=== PATIENT | male | born 1985 | race Hispanic/Latino ===

== ENCOUNTER 2020-01-26 14:37 | Emergency (ER) | payer SELFPAY ==
[2020-01-26 14:58] VITALS: BP 139/83
[2020-01-26] MEDS ORDERED: IBUPROFEN 800 MG TAB PO ONE (16:46)
--- NOTE | 2020-01-26 17:25 | Emergency Department Report ---
ED ENT HPI - General Chief complaint: Dental/Oral Stated complaint: MOUTH PAIN Time Seen by Provider: 01/26/20 16:33 Source: patient Mode of arrival: Ambulatory Limitations: No Limitations - History of Present Illness Initial comments: This is a 34-year-old male nontoxic, well nourished in appearance, no acute signs of distress presents to the ED with c/o of right upper toothache 3 weeks. Patient denies following up with a dentist. Patient describes toothache as aching level of 8 out of 10. Patient denies any facial swelling. Patient denies any numbness, tingling, fever, chills, headache, stiff neck, abdominal pain, chest pain, shortness of breath. Patient stated allergies to PCN. MD complaint: tooth pain -: days(s) Location: tooth # 1 - pain here Severity: mild Severity scale (0 -10): 8 Quality: aching Consistency: constant Improves with: none Worsens with: none Context- Dental: history of dental caries, poor dental care Associated Symptoms: gum swelling, toothache. denies: fever, cough, pain with swallowing, sore throat, tinnitus, hearing loss, discharge from ear, rhinorrhea - Related Data Previous Rx's Medication Instructions Recorded Last Taken Type Chlorhexidine Mouthwash [Peridex] 15 ml MM BID #1 bottle 01/26/20 Unknown Rx Clindamycin [Clindamycin CAP] 300 mg PO Q8H #21 cap 01/26/20 Unknown Rx Naproxen 500 mg PO Q12H PRN #12 tablet 01/26/20 Unknown Rx Allergies Allergy/AdvReac Type Severity Reaction Status Date / Time Penicillins Allergy Swelling Verified 01/26/20 14:55 ED Dental HPI - General Chief complaint: Dental/Oral Stated complaint: MOUTH PAIN Time Seen by Provider: 01/26/20 16:33 Source: patient Mode of arrival: Ambulatory Limitations: No Limitations - Related Data Previous Rx's Medication Instructions Recorded Last Taken Type Chlorhexidine Mouthwash [Peridex] 15 ml MM BID #1 bottle 01/26/20 Unknown Rx Clindamycin [Clindamycin CAP] 300 mg PO Q8H #21 cap 01/26/20 Unknown Rx Naproxen 500 mg PO Q12H PRN #12 tablet 01/26/20 Unknown Rx Allergies Allergy/AdvReac Type Severity Reaction Status Date / Time Penicillins Allergy Swelling Verified 01/26/20 14:55 ED Review of Systems ROS: Stated complaint: MOUTH PAIN Other details as noted in HPI Comment: All other systems reviewed and negative Constitutional: denies: chills, fever Eyes: denies: eye pain, eye discharge, vision change ENT: dental pain. denies: ear pain, throat pain Respiratory: denies: cough, shortness of breath, wheezing Cardiovascular: denies: chest pain, palpitations Endocrine: no symptoms reported Gastrointestinal: denies: abdominal pain, nausea, diarrhea Genitourinary: denies: urgency, dysuria Musculoskeletal: denies: back pain, joint swelling, arthralgia Skin: denies: rash, lesions Neurological: denies: headache, weakness, paresthesias Psychiatric: denies: anxiety, depression Hematological/Lymphatic: denies: easy bleeding, easy bruising ED Past Medical Hx - Past Medical History Previous Medical History?: No - Surgical History Past Surgical History?: No - Social History Smoking Status: Current Every Day Smoker Substance Use Type: Marijuana - Medications Home Medications: Home Medications Medication Instructions Recorded Confirmed Last Taken Type Chlorhexidine Mouthwash [Peridex] 15 ml MM BID #1 bottle 01/26/20 Unknown Rx Clindamycin [Clindamycin CAP] 300 mg PO Q8H #21 cap 01/26/20 Unknown Rx Naproxen 500 mg PO Q12H PRN #12 tablet 01/26/20 Unknown Rx ED Physical Exam - General Limitations: No Limitations General appearance: alert, in no apparent distress - Head Head exam: Present: atraumatic, normocephalic - Eye Eye exam: Present: normal appearance - Expanded ENT Exam Expanded Ear exam: Present: normal external inspection Mouth exam: Present: normal external inspection, tongue normal. Absent: drooling, trismus, muffled voice Teeth exam: Present: dental caries, fractured tooth #, dental tenderness #, gingival enlargement, other (no facial swelling. no abscess) Throat exam: Positive: normal inspection, other (uvula midline). Negative: tonsillar erythema, tonsillomegaly, tonsillar exudate, R peritonsillar mass, L peritonsillar mass - Neck Neck exam: Present: normal inspection - Respiratory Respiratory exam: Absent: respiratory distress - Cardiovascular Cardiovascular Exam: Present: normal rhythm - Extremities Exam Extremities exam: Present: full ROM - Back Exam Back exam: Present: full ROM - Neurological Exam Neurological exam: Present: alert, oriented X3, normal gait - Psychiatric Psychiatric exam: Present: normal affect, normal mood - Skin Skin exam: Present: warm, dry, intact, normal color. Absent: rash ED Course Vital Signs 01/26/20 01/26/20 14:56 17:51 Temperature 98.2 F Pulse Rate 115 H 86 Respiratory 16 Rate Blood Pressure 139/83 [Right] O2 Sat by Pulse 98 Oximetry - Reevaluation(s) Reevaluation #1: 01/26/20 17:26 Patient is speaking in full sentences with no signs of distress noted. ED Medical Decision Making - Medical Decision Making This is a 34-year-old male that presents with gingivitis and dental caries. Patient is stable and was examined by me. Patient is discharged with clindamycin. Patient was instructed to follow-up with a dentist in 3 to 5 days or if symptoms worsen and continue to return to emergency room as was possible. At time of discharge, the patient does not seem toxic or ill in appearance. No acute signs of distress noted. Patient agrees to discharge treatment plan of care. No further questions noted by the patient. Critical care attestation.: If time is entered above; I have spent that time in minutes in the direct care of this critically ill patient, excluding procedure time. ED Disposition Clinical Impression: Dental caries, Gingivitis Disposition: - TO HOME OR SELFCARE Is pt being admited?: No Does the pt Need Aspirin: No Condition: Stable Instructions: Dental Caries (ED), Gingivitis (ED) Additional Instructions: Follow-up with a dentist doctor in 3-5 days or if symptoms worsen and continue return to emergency room as soon as possible. Prescriptions: Clindamycin [Clindamycin CAP] 300 mg PO Q8H #21 cap Naproxen 500 mg PO Q12H PRN #12 tablet PRN Reason: Pain , Severe (7-10) Chlorhexidine Mouthwash [Peridex] 15 ml MM BID #1 bottle Referrals: PRIMARY CAREMD [Primary Care Provider] - 3-5 Days VICKY GOLD MD [Staff Physician] - 3-[address] [facility] [Outside] - 3-5 Days Forms: Work/School Release Form(ED)
== END 2020-01-26 18:12 | disposition home or self-care (01) ==
LOC: ED 14:37
DX: K02.9 Dental caries, unspecified (principal); K05.10 Chronic gingivitis, plaque induced; F17.200 Nicotine dependence, unspecified, uncomplicated; F12.90 Cannabis use, unspecified, uncomplicated; Z79.899 Other long term (current) drug therapy; Z88.0 Allergy status to penicillin
CPT/HCPCS: 99282

== ENCOUNTER → 2020-04-14 14:56 | Emergency (ER) | payer SELFPAY | END | disposition left against medical advice (07) | LOC: ED 14:56 | DX: Z00.8 Encounter for other general examination (principal); Z53.21 Procedure and treatment not carried out due to patient leaving prior to being seen by health care provider ==